=== PATIENT | male | born 1970 | race Caucasian/White ===

== ENCOUNTER 2019-04-14 12:57 | Emergency (ER) | payer BC, OTHER ==
[2019-04-14 13:14] VITALS: BMI 25.7
--- NOTE | 2019-04-14 13:27 | PDOC ---
History of Present Illness - General Chief Complaint: Pain Stated Complaint: PAIN TO LEFT UPPER ABDOMEN SENT BY PMD FOR CATSCA Time Seen by Provider: 04/14/19 13:15 History Source: Patient Past History - Past Medical History Allergies/Adverse Reactions: Allergies Allergy/AdvReac Type Severity Reaction Status Date / Time No Known Allergies Allergy Verified 04/14/19 13:00 Home Medications: Ambulatory Orders Losartan/Hydrochlorothiazide [Losartan-Hctz 100-12.5 mg Tab] 1 tab PO DAILY COPD: No HTN: Yes - Surgical History Cholecystectomy: Yes - Psycho Social/Smoking Cessation Hx Smoking Status: Yes Smoking History: Current every day smoker Have you smoked in the past 12 months: Yes Number of Cigarettes Smoked Daily: 20 Information on smoking cessation initiated: Yes Hx Alcohol Use: Yes (SOCIAL) Drug/Substance Use Hx: No *Physical Exam - Vital Signs Last Vital Signs Temp Pulse Resp BP Pulse Ox 98.7 F 94 H 16 136/103 H 100 04/14/19 13:00 04/14/19 13:00 04/14/19 13:00 04/14/19 13:00 04/14/19 13:00 ED Treatment Course - LABORATORY CBC & Chemistry Diagram: 04/14/19 13:40 04/14/19 13:40 Discharge - Discharge Information Problems reviewed: Yes Clinical Impression/Diagnosis: Lymphadenopathy, Lung nodules Abdominal pain Qualifiers: Abdominal location: unspecified location Qualified Code(s): R10.9 - Unspecified abdominal pain Condition: Stable Disposition: HOME - Admission No - Additional Discharge Information Health Concerns: Lumphadenopathy & Lung Nodules Plan of Treatment: After reviewing the lab reports & CT scans, Discussed with Dr Thorne. PMD will call the patient to discuss the plan for further consults and follow up care. Prescription Drug Monitoring Program (I-STOP) results: I-STOP reviewed and issues identified - Follow up/Referral Referrals: Tashi Perez MD [Primary Care Provider] - - Patient Discharge Instructions Additional Instructions: Discuss with your Doctor donn the specific instruction and additional specialists to see you - Post Discharge Activity
[2019-04-14 14:05] LABS: BASO % 0.3 % (0-2.0); EOS % 0.8 % (0-4.5); HEMATOCRIT 38.8 % (35.4-49); HEMOGLOBIN 12.9 GM/dl (11.7-16.9); LYMPH % 21.6 % (8-40); MCH 28.1 pg (25.7-33.7); MCHC 33.4 g/dl (32.0-35.9); MEAN CELL VOLUME 84.2 fl (80-96); MEAN PLT VOLUME 7.8 fl (7.5-11.1); MONO % 4.3 % (3.8-10.2); PLATELET COUNT 223 K/MM3 (134-434); RDW 13.4 % (11.9-15.9); WHITE BLOOD COUNT 6.7 K/mm3 (4.0-10.8)
[2019-04-14 14:12] LABS: CALCIUM 9.1 mg/dl (8.5-10); CREATININE 1.2 mg/dl (0.55-1.3); TOT PROT 7.6 g/dl (6.4-8.2)
[2019-04-14 16:27] VITALS: BP 163/106; PULSE 86; TEMP 98.3
== END 2019-04-14 16:32 | disposition home or self-care (01) ==
LOC: FER 12:57
DX: R10.9 Unspecified abdominal pain (principal); F17.210 Nicotine dependence, cigarettes, uncomplicated; I10 Essential (primary) hypertension; R59.1 Generalized enlarged lymph nodes
CPT/HCPCS: 36415; 71260-TC; 74177-TC; 80053; 81003; 85025; 99284-25